=== PATIENT | female | born 1930 | race Caucasian/White ===

== ENCOUNTER 2019-06-07 19:57 | Inpatient (IN) | payer OTHER, MEDICARE ==
[~2019-06-07] VITALS: Ht 172.7 cm; Wt 55.6 kg
--- NOTE | ~2019-06-07 | HC ---
[facility] [address] [place] [address] CONSULTATION Name: KAREN CARTER Room #: 528B-B ADM IN M.R.#: [id number] Admission: 06/07/19 Attend Phys: Deedee Li DO Discharge: Date of : 05/03/30 Report #: [id number] THIS REPORT FOR: cc: CECILE - No family physician/PCP CECILE - No family physician/PCP Blane Cadena DPM ~ CC: DEEDEE Cummins physician/PCP Corine Scherer DATE OF SERVICE: 06/24/2019 INTRODUCTION: The patient is an 89-year-old female who has been admitted to [facility] with complications associated with her dementia. In the course of her stay, she has been identified as having severe onychodystrophy with onychogryphosis. When questioned, it has been many months since her toenails have been cared for. She also has a pretibial ulceration which is infected and has caused right foot edema. This wound is being managed by our [facility] physicians. Remainder of her medical history with regard to her foot care is unremarkable. PHYSICAL EXAMINATION: GENERAL: The patient is conversational, lucid and has obvious cognitive deficits including lack of short term memory. She is pleasant during our period of interview and treatment. EXTREMITES: Her pedal exam reveals dorsalis pedis, posterior tibial pulses graded at 1/4, capillary refill time is approximately 4 seconds. There is unilateral right 2+ pitting edema of the foot and ankle, presumably associated with injury on her panda. There are no acute changes associated with this vascularity. NEUROLOGICAL: The patient is apparently grossly intact to soft touch and pressure, gauging her responses from this examination is admittedly difficult. DERMATOLOGIC: Reveals severe onychogryphosis, onychodystrophy associated with onychomycosis. Nail hygiene is extremely poor. These nails have not been trimmed for upwards of a year. There are no acute findings, however. Remainder of her dermatologic exam reveals no other pathology. ASSESSMENT: 1. Dementia associated with Alzheimer's. 2. Onychogryphosis associated with onychomycosis, bilateral feet. PLAN: The patient's nails were debrided. No additional pathology was noted at the time of treatment. We discussed general hygiene and foot care issues for the future. [address] [address] CONSULTATION Name: KAREN CARTER Room #: 528B-B ADM IN M.R.#: [id number] Admission: 06/07/19 Attend Phys: Deedee Li DO Discharge: Date of : 05/03/30 Report #: [id number] It has been a pleasure having the opportunity of caring for the patient. I would be pleased to follow up with her upon request. By: 0937 Taj Cadena DPM /blaine
[2019-06-07 21:40] VITALS: BP 150/43
[2019-06-07] MEDS ORDERED: ARICEPT10 M1 PO (23:04)
[2019-06-07] MEDS ORDERED: CHLORTHALIDONE25 MG PO (23:06)
[2019-06-07] MEDS ORDERED: COREG CR40 MG PO (23:07)
[2019-06-07] MEDS ORDERED: LISINOPRIL40 MG PO (23:07)
[2019-06-07] MEDS ORDERED: PAXIL10 MG PO (23:08)
[2019-06-07] MEDS ORDERED: MEMANTINE HCL E28 MG PO (23:08)
[2019-06-07] MEDS ORDERED: ROSUVASTATIN CA10 MG PO (23:09)
--- NOTE | 2019-06-07 23:51 | NUR ---
Patient arrived via EMS on gurney from [facility] ED for admission to [facility] due to dementia with aggressive behaviors. Patient calm, pleasant and cooperative upon arrival. Patient had received Ativan 0.5mg PO while in ED. Patient cooperative with assessment, drowsy. Blunted affect. Disorganized speech. Alert and oriented to person only. Clothing changed without difficulty. Large amount of information provided by patient's son, CINTHIA, Kavon Mata. CINTHIA paperwork is in patient chart. Patient had been living at [facility] for the last 9 years in an independent living facility. Son reports a slow decline over the last 4 years. Reports that patient had become more frustrated, forgetting meals, forgetting meds. Son had hired a contract staff to provide patient her medications, walk her to meals and assist with ADLs. Son had decided to move patient to [facility] to provide more extensive care for patient on 06/03/19. Son reports that patient has always enjoyed going outside and sitting outside but has never taken off walking or eloping. Since patient moved into [place], she has had increased anxiety, eloping from facility 5 times, increased agitation, physically and verbally aggressive to staff. Son reports that patient has been taking her medication whole without difficulty. Reports that patient occasionally has difficulty making it to the bathroom for toileting needs. Son reports 11 pound weight loss over the last 30 days. Patient has been declining to eat most meals. [employer] consult ordered. Patient denies pain or discomfort. Denies SI/HI/AH/VH. No paranoia or delusional behaviors observed. No physical or verbal aggression observed. Son reports patient walks without assistive devices. Denies any falls over the last 3 months. Skin intact. Toe nails long and thickened. Lungs clear, diminished. Patient does have non-productive cough. Son reports that patient has had a cough for the last couple weeks and took her to the doctor. Reports that no infectious process was diagnosed and the doctor felt it was "sinus drainage" and recommended to start Zyrtec daily. Patient has been able to rest quietly since arrival to the unit.
--- NOTE | 2019-06-08 07:35 | NUR ---
PT HAD DRY COUGH. PT DENIES ANY PAIN. PT LUNGS CLEAR. PT DIDN'T REMEMBER LAST BM. PT DIDN'T KNOW WHERE SHE IS OR WHAT MONTH IT IS. PT STATED WE JUST HAD GRACIELA. PT STATED SHE GREW UP IN . PT HAS SCAB ON TOP OF HEAD.
[2019-06-08 07:40] VITALS: BP 130/51
[2019-06-08 08:40] VITALS: BP 130/51
--- NOTE | 2019-06-08 09:37 | NUR ---
SW completed chart review and TP. Pt lives at [facility] but has eloped on 5 occassions. Pt will need a secure unit . Will f/u with family to see if this has been initiated.
--- NOTE | 2019-06-08 15:39 | NUR ---
SW called son [phone] and left a VM.
--- NOTE | 2019-06-08 16:19 | NUR ---
Kristel spoke with pt's son piero and he is afaxing his DPOA paperwork to this SW fax. Sw compelted the intake assesment and discussed d/c options. Son would like referral sent to [facility]. More referals will be sent when he confirms where. KRISTEL is looking for secure placement.
[2019-06-08 17:25] VITALS: BP 112/52
[2019-06-08 19:45] VITALS: BP 109/34
[2019-06-08 23:25] VITALS: BP 109/34
--- NOTE | 2019-06-09 04:33 | NUR ---
PATIENT WAS UP IN ROOM AT 0415. SHE WAS PLEASANT AND STATES THAT SOMEONE HAD CALLED AND ASKED HER TO GO TO [facility] WITH THEM BUT SHE DOESN'T THINK SHE IS WANTING TO GO. SPOKE WITH PATIENT AND EXPLAINED SHE WAS AT [facility]. SHE SAYS SHE RECALLS NOTHING THAT HAS HAPPENED FOR LAST SEVERAL DAYS THAT BROUGHT HER HERE. SHE IS MILDLY UPSET THAT SHE DIDN'T KNOW ABOUT HER MOVE TO WALLS OR HER BEHAVIORS IN EXIT SEEKING OR REMEMBERING COMING TO THIS HOSPITAL. SHE STATES SHE WANTS TO SPEAK WITH THE DR TODAY ABOUT WHAT HER TREATMENT IS GOING TO BE. SHE DENIES PAIN. PHYSICAL ASSESSMENT WNL. PATIENT A/0X1. PLEASANT AND COOPERATIVE. DID NOT REMEMBER PUSHING THIS NURSE AWAY WHEN I CAME IN TO GIVE HER MEDS EARLIER AND ASSESS HER. SHE APOLOGIZED FOR HER ACTIONS. I TOLD HER THAT SHE WAS SLEEPY AT THE TIME AND PROBABLY DIDN'T WANT TO BE BOTHERED. EXPLAINED SHE WAS BROUGHT HERE TO GIVE HER A SAFE PLACE TO STAY WHILE THE [facility]CT[facility] CHECK HER OUT AND FIGURE OUT A TREATMENT PLAN FOR HER. SHE IS OK WITH THIS.
--- NOTE | 2019-06-09 08:36 | NUR ---
Sw completed chart review and pt is already making gains. Kristel sent referral to [place]
--- NOTE | 2019-06-09 08:57 | NUR ---
ASSUMED CARE AT 0700 THIS MORNING. SHE WAS SITTING AT A TABLE FOR BREAKFAST. SHE TOOK HER MEDICATIONS WITH MUCH ENCOURAGEMENT. PT. LOOKED AT THE THINGS ON HER TABLE AND COULD NOT TELL WHICH WAS THE MEDICATION CUP AND WHICH WAS THE WATER. SHE WAS GUIDED TO THE CORRECT DECISION. SHE DID TAKE HER MEDICATIONS. AFTER BREAKFAST, SHE WAS WANDERING THE KHAN, YANKING AT DOORS TRYING TO GET OUT. SHE WAS UPSET WITH THIS ASKING WHY SHE COULD NOT LEAVE. DR. JENNINGS INFORMED HER THAT THIS IS THE BEHAVIORS THE GOT HER HERE.
[2019-06-09 09:09] VITALS: BP 123/45
[2019-06-09 10:54] VITALS: BP 123/45
[2019-06-09 17:18] VITALS: BP 100/50
[2019-06-10 01:14] VITALS: BP 100/50
--- NOTE | 2019-06-10 01:52 | NUR ---
Patient was pacing hallways at start of shift. Her gait is fast, straight and steady. Pt. refused 3 different attempts to get her to take scheduled medicine. Pt. wandered in a few rooms that were not hers. She was redirected but would then resume same activity. She domenic any pain and has no s/s of distress. Pt. went into her room to lay down for bed at approximately 1115 pm.
[2019-06-10 08:20] VITALS: BP 107/58
--- NOTE | 2019-06-10 08:37 | NUR ---
PT UP AT BREAKFAST. PT DENIES ANY PAIN. PT ORIENTED TO SELF. PT TOOK MEDS ONE AT A TIME. PT ENCOURAGED TO DRINK HEALTH SHAKE. PT DIDN'T HAVE ANY ISSUES WITH BEHAVIOR THIS AM WITH REFUSING MEDS.
--- NOTE | 2019-06-10 08:53 | NUR ---
SW completed chart review and witnessed exit seeking behaviors from pt all day yesterday. pt is easily redirected. Pt will need more time and less behaviors to be placed in a new [facility]. [place] admissions stated that they are interested in pt and are willing to consider when she is more compliant and less restless.
[2019-06-10 09:28] VITALS: BP 107/58
--- NOTE | 2019-06-10 13:47 | NUR ---
PT WANDERING AROUND UNIT. PT ENCOURAGED TO DRINK WATER.
--- NOTE | 2019-06-10 15:58 | NUR ---
PT WALKING AROUND UNIT. PT ASKING IF THIS DENTAL ASSOCIATE CAN UNLOCK THE DOOR. PT STATED HER BACK WAS HURTING AND SHE NEEDED TO GET HOME. OFFERED HER SOME TYLENOL, PT REFUSED. TRIED TO OFFER FIND A WORD PUZZLES, PT REFUSED. OFFERED WATER, PT STATED SHE IS DRINKING WATER.
--- NOTE | 2019-06-10 17:55 | NUR ---
PT STILL UP CHECKING DOORS TO ESCAPE, A STAFF MEMEBER WAS COMING THROUGH DOOR AND SHE WENT OUT AFTER HER AND KNOCKED OFF NURSES GLASSES.
--- NOTE | 2019-06-10 18:01 | NUR ---
ATTEMPTED TO GIVE PT LORAZEPAM PRN, PT REFUSED MEDICATION. PT SITTING DOWN IN DINING ROOM.
[2019-06-10 19:53] VITALS: BP 145/47
--- NOTE | 2019-06-10 20:28 | H ---
[facility] [address] [place] [address] HISTORY AND PHYSICAL Name: KAREN CARTER Room #: 528B-B ADM IN M.R.#: [id number] Admission: 06/07/19 Attend Phys: Corine Scherer MD Discharge: Date of : 05/03/30 Report #: [id number] THIS REPORT FOR: //name// CC: CECILE physician/PCP Corine Scherer DATE OF SERVICE: 06/07/2019 INPATIENT PSYCHIATRIC EVALUATION ATTENDING PHYSICIAN: Rocky Li DO CLINICAL DIETITIAN: Micah Meng MD. REASON FOR ADMISSION: Behavioral disturbance at [facility]. SOURCES OF INFORMATION: Discussion with sonKavon; chart review; records from [place] and the signature accounting machine mechanic. HISTORY OF PRESENT ILLNESS: An 89-year-old female new admission to [facility] in [facility]. The patient has a history of Alzheimer's. Per the son, the patient was moved to the snf, she attempted to escape 5 times. The patient had a largely negative past medical history. No strokes, heart attacks or surgeries. From her medication list, she has been treated for hyperlipidemia, hypertension, depression and dementia. REVIEW OF SYSTEMS: From the [place] ER: CONSTITUTIONAL: Negative for chills or fever. EYES: Negative for eye pain or visual changes. EARS: Negative for pain. NOSE: Negative for congestion or discharge. MOUTH, THROAT: Negative for dysphagia or pain. NECK: Negative for pain, stiffness. CARDIOVASCULAR: Negative for chest pain, palpitations, tachycardia. RESPIRATORY: Negative for cough, dyspnea, pleuritic chest pain. GASTROINTESTINAL: Negative for abdominal pain, diarrhea, nausea or vomiting. GENITOURINARY: Negative for dysuria, frequency, hematuria, or urgency. MUSCULOSKELETAL: Negative for back pain, neck pain. INTEGUMENTARY: Negative for abrasions, rashes. NEUROLOGIC: Negative for altered mental status, dizziness, headache, loss of consciousness, also functional weakness. I reviewed apparently the above problems today as well and they were negative. PSYCHIATRIC: Interestingly, the patient denied, could not remember events from snf. Emergency Room physical grossly negative. LABORATORY DATA: Hemoglobin 10.2, hematocrit 32.7, white blood cell count 16.5, [facility] [address] [place] [address] HISTORY AND PHYSICAL Name: KAREN CARTER Room #: 528B-B ADM IN M.R.#: [id number] Admission: 06/07/19 Attend Phys: Corine Scherer MD Discharge: Date of : 05/03/[birth year] Report #: [id number] platelet count 244. Albumin 3.7, alkaline phosphatase 53, ALT 10, AST 26, total bilirubin 0.3, BUN 26, serum calcium 9.3. Serum chloride 102, bicarbonate 28. Serum creatinine 0.88, GFR greater than 60. Serum globulin 2.8. Serum glucose 123, potassium slightly low at 3.4, total protein 6.5. Serum sodium 140. Toxicology, negative acetaminophen, negative salicylates, ethanol less than 10. Urinalysis showed trace ketones, trace blood. Additional information from [facility], social welfare administrator, named Emily, the patient was brought to the [facility] as a new admission on 06/03/2019, no prior contact with the facility, Thursday the family was scheduled to visit the facility prior to the patient's relocation from [facility]; however, visitation appointments were not kept, the patient relocated to [facility], now becoming familiar with the facility prior, Emily described that the patient began displaying aggressive behavior and exit seeking behavior on the evening of . Emily described that one day she was sent to the ER, exited the facility when the door was opened for another resident. Staff of [facility] of [place] keeping the patient away from the road. She was running towards it, striking at staff several times, Emily states that the patient had been discharged from [facility] and affirming that no documentation was given to the family to communicate as such. Emily expressed that [facility] is not able to meet the patient's daily care needs, this facility is not a memory care unit, only provides services who requires long-term care. Emily stated that [facility] had contacted with [facility], encouraged [facility] to advise the family to present to the Emergency Department. Evidently, the patient lost 5-6 pounds in the last month due to decreased appetite with some increased paranoia and anxiety. PHYSICAL EXAMINATION: VITAL SIGNS: Temperature 36.4, pulse 90, respirations 17, BP 130/51, O2 sat 95%. MUSCULOSKELETAL: Normal gait and station. Wearing glasses. The patient does have a kyphotic posture. MENTAL STATUS EXAMINATION: This is a well-developed, age-appearing female. Attention limited. Concentration limited. Speech, deliberate. Thought process linear and limited. Thought content, relative poverty of thought. No psychomotor retardation. Mood was congruent, constricted, diminished range. She denied auditory, visual, or tactile hallucinations. She denied suicidal intent or plan. Denied hopelessness, helplessness. Memory grossly noted to be impaired grossly impaired. Insight impaired. Judgment impaired. Fund of knowledge well below average. FAMILY HISTORY: She has had 3 younger siblings with dementia. Her spouse in 1997. [facility] [address] [facility] [place] [address] HISTORY AND PHYSICAL Name: KAREN CARTER Room #: 528B-B ADM IN M.R.#: [id number] Admission: 06/07/19 Attend Phys: Corine Scherer MD Discharge: Date of : 05/03/[birth year] Report #: [id number] ABUSE HISTORY: No history of being subject to physical, sexual or emotional abuse. No criminal justice history. No history. FORMULATION: An 89-year-old female sent out from snf, the snf was reporting patient cannot return. 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 PLAN: Evaluate, stabilize, obtain collateral. I went ahead and discontinued the paroxetine as well as donepezil. Continue memantine 10 mg p.o. b.i.d., lisinopril 40 mg daily, chlorthalidone 25 mg 3 days a week, atorvastatin 20 mg p.o. daily. I did advice son to reconsider the use of statins in this patient. Coreg 12.5 mg p.o. b.i.d. with meals. I will leave lorazepam on for 0.5 mg p.o. q. 6 p.r.n. We will plan to taper on this admission. Other house PRNs. The patient is a no code. ESTIMATED LENGTH OF STAY: 10-14 days. STRENGTHS: She is insured, family support. WEAKNESSES: Dementia, advanced age. Time spent on interview, review of records, coordination of care was greater than 60 minutes. <ELECTRONICALLY SIGNED> By: Rocky Li, 06/10/192027 [id number] [id number] Rocky Li, /nt
--- NOTE | 2019-06-11 02:34 | NUR ---
Care assumed of patient at 1915: Patient pacing the halls most of the evening. Exit seeking, demanding to go home, attempting to open any and all doors on the unit. Avoidance of any questions asked. [place], obsessive thoughts on getting home. Flat affect, avoiding eye contact. Patient alert and oriented to person only. Confused and forgetful. Denies pain or discomfort. Patient restless. Unable to sit for nursing assessment for longer than a couple minutes. Patient took HS medication crushed in yogurt. Patient ate approximately 50% yogurt. Patient needed assistance due to having difficulty using spoon. Patient agitated and irritable due to nurse asking questions and not allowing her to leave. No verbal or physical aggression observed. Denies SI/HI/AH/VH. Patient sarcastic at times. Patient denies anxiety and depression. Patient was difficult to re-direct this evening. Patient provided PRN Ativan due to severe agitation observed. Patient was assisted to bed and was able to fall to sleep without difficulty. Patient resting quietly at this time.
[2019-06-11 06:19] VITALS: BP 141/40
[2019-06-11 08:19] VITALS: BP 141/40
--- NOTE | 2019-06-11 14:03 | NUR ---
Spent most of morning in day room without s/o distress. Does ambulate at times around unit with regular, steady gait. Orientated to name only, denies SI/HI/pain. Calm and cooperative. Breath sounds clear t/o, bilaterally equal. Reg HR auscultated. Color pink with brisk capillary refill and palpable peripheral pulses. Voiding independently. Active bowel sounds over soft, flat abdomen. Currently pacing in unit without exit seeking. No s/o distress.
[2019-06-11 20:37] VITALS: BP 118/43
--- NOTE | 2019-06-11 23:50 | NUR ---
Care assumed of patient at 1915: Patient pacing about the halls early in the shift. Patient wandering through other patient rooms, attempted to lay in other patient beds, pilfering through personal belongings. Patient alert and oriented to person only. Confused and forgetful. Flat affect. Easier to re-direct, less resistive than previous nights. Patient cooperative with nursing assessment. Restless at times and asked to sit for another couple of minutes. Denies pain or discomfort. Denies SI/HI/AH/VH. Denies depression or anxiety. No s/s of delusional or paranoia behaviors observed. Patient continent of bowel and bladder this evening. Declined HS snack. Took HS medication crushed without difficulty. No exit seeking behaviors observed, has not asked where her car is or to go home. Patient assisted and tucked into bed. Patient was able to fall to sleep rather quickly and has been resting quietly since.
[2019-06-12 08:15] VITALS: BP 126/84
--- NOTE | 2019-06-12 08:51 | NUR ---
PT EATING BREAKFAST. PT TOOK MEDS IN YOGART THIS AM. PT TOLERATED WELL. PT ORIENTED TO PERSON. PT LIKES TO WONDER AROUND UNIT. PT EXIT SEEKS ALSO, CHECKING DOORS.
--- NOTE | 2019-06-12 17:20 | NUR ---
PT NOT EATING MUCH DINNER. ENCOURAGED PT TO DRINK ENSURE DRINK. TOOK BP WITH SMALL CUFF 142/57. PT WAS ASKING ABOUT GOING HOME TODAY. FAMILY MEETING TOMMORROW. GAVE PT ATIVAN 0.5MG PO WITH COREG TO HELP WITH INCREASED ANXIETY.
--- NOTE | 2019-06-12 18:12 | NUR ---
PT WALKING AROUND UNIT WITH ANOTHER PATIENT.
[2019-06-12 19:41] VITALS: BP 120/41
[2019-06-12 19:50] VITALS: BP 120/41
--- NOTE | 2019-06-13 04:27 | NUR ---
Assumed care of patient this pm shift. Patient confused and pacing the halls. Patient denies pain. Patient denies hi/si. Patients affect is blunted. Patient takes medications crushed in applesauce. Patient ambulates with out assistance. Patients assessment shows clear breath sounds, active bowel sounds, and s1 s2 heard with auscultation. Patient had a difficult time getting to sleep and became mildly aggressive with redirection. Patient was administered a shot of haldol. Patient attained a skin tear on her ankle after kicking the nurse. The wound was covered and bandaged. Patient calmed down significantly and was able to sleep not long after the im injection.
[2019-06-13 07:40] VITALS: BP 106/58
--- NOTE | 2019-06-13 09:09 | NUR ---
Sw sent updates to [facility] per request. They are considering her for placement once she is meds compliant and more easily redirected.
--- NOTE | 2019-06-13 12:28 | NUR ---
Kristel met with family and Dr li to disucss treatment plan. Dr Li completed a meds review and DX. Kristel discussed placment options and reported that [facility] was still considering this pt. KRISTEL will send referal to [facility] per fmaily request and 1 more placement so there are more options.
--- NOTE | 2019-06-13 18:40 | NUR ---
0710 ASSUMED CARE OF PATIENT. PATIENT AMB IN [facility]HAN AT THIS TIME. PATIENT NOTED EXIT SEEKING AND WANDERING IN KHAN. OCCASIONALLY PATIENT SITS IN DAYROOM THEN UP TO WANDERING. PATIENT TOOK MEDS CRUSHED IN PUDDING WITH SOME ENCOURAGEMENT. PATIENT HAS A DRESSING TO RIGHT LEG DUE TO SKIN TEAR. UNABLE TO VOICE GOAL OR CONCERN. 3323 FAMILY HERE FOR MEETING WITH AND DIETER.
--- NOTE | 2019-06-13 18:45 | NUR ---
AT 1820 PICTURE TAKEN OF OPEN AREA TO RIGHT ANTERIOR LEG . WOUND CLEANED WITH NS, XEROFORM PETROLATUM DRESSING APPLIED TO WOUND THEN COVERED IN CURLEX DRESSING. PATIENT REMAINED IN BED RESTING WITH EYES CLOSED X 15 MIN THEN UP TO WANDER IN KHAN. DRESSING REENFORCED WITH TAPE DUE TO DRESSING FALLING OF WITH AMBULATION. REPORTED TO NEXT SHIFT.
[2019-06-13 19:37] VITALS: BP 127/45
--- NOTE | 2019-06-14 01:03 | NUR ---
Care assumed of patient at 1915: Patient pacing the halls at start of shift. Patient pleasant and cooperative. Some exit seeking behaviors observed x2. Patient re-directable to sit down and speak with nurse. Patient fell asleep in recliner rather early this shift. Patient presents with flat affect. Denies SI/HI/AH/VH. No aggression or agitation observed. No delusional or paranoia behaviors observed. Alert and oriented to person only. Patient took HS medication crushed without difficulty. Ate 25% yogurt, fed by nurse. Patient walked to her room with nurse. Continent of bladder. Changed into bed time clothing. Was then able to lay down in bed and fall sleep without difficulty. No aggression or agitation observed. Dressing remains intact to right lower extremity. Order obtained for wound consult and treatments daily. Patient sleeping quietly in bed at this time.
[2019-06-14 08:16] VITALS: BP 144/60
--- NOTE | 2019-06-14 11:09 | NUR ---
Date of Admission: 06/07/19 Date of Activity Therapy Assessment: 06/10/19 Activity Goal: Decrease wandering/exit seeking behaviors Initial Goal: 1 Group activity/day Weekly progress towards goal: On track Group participation level: Minimal Behaviors observed: Patient's attendance to groups has improved as wandering has begun to decrease, though level of participation continues to be low. Pt often appears drowsy or disinterested, though she is not able to express interests. Plan: No change towards goal
--- NOTE | 2019-06-14 12:34 | NUR ---
0900 Sitting at table this AM without s/o distress. Compliant with meds, given crushed in apple sauce. Alert, orientated to person only. No speech or gestures suggestive of SI/HI. Breath sounds clear t/o, bilaterally. Spontaneous, nonproductive cough. Reg HR auscultated. Color pale pink with brisk capillary refill and palpable peripheral pulses. Small amount of yellow urine per brief. Hypoactive bowel sounds over soft, flat abdomen. Slow, steady gait. Much slower gait after AM meds, sitting most of day in dining room. Large skin tear per R lower leg. Cleaned with NS and redressed with petroleam drsg, gauze and kerlix. No edema, drg or redness.
--- NOTE | 2019-06-14 16:55 | NUR ---
WOUND CONSULT; RIGHT ANTERIOR LEG HAS A SKIN TEAR. THERE IS NON VIABLE SKIN THAT NEEDS TO BE REMOVED BUT THE PATIENT WAS AGITATED AND WOULD NOT ALLOW IT. NO ODOR OR ANY OTHER S/S OF INFECTION. RECOMMENDATION; CONTINUE XEROFORM, BORDER TRACEE HAGER M/W/F PRN RN NOTIFIED
[2019-06-14 19:33] VITALS: BP 111/41
--- NOTE | 2019-06-15 01:59 | NUR ---
Care assumed of patient at 191: Patient was seated in recliner, appeared to be sleeping at start of shift. Patient got up from chair around 1944 and started to pace the halls, exit seeking, pushing on doors. Staff assisted patient to the bathroom. Patient having small, soft, unformed BM. Patient restless and resistive to assist. Patient alert and oriented to person only. Patient confused. Patient became agitated and irritable with staff quickly. Nurse attempted to provide HS medication crushed. Appears that patient took approximately 75% HS medication. Patient became combative shortly after by kicking, hitting and grabbing at nurse. Slamming her door, yelling "get out of here now". Staff attempted to assist patient to bed or recliner several times. Patient stating she needed to use the bathroom several times and was assisted to the bathroom. Continued to have smears of soft BM and small BM. Patient rubbing her abdomen, stating she had to have a BM. Abdomen soft, round, nontender. Bowel sounds present x4. PRN MOM provided due to inability of having BM. Last BM 06/11/19. Patient drank MOM out of big cup with much encouragement. Patient remained restless and became increasingly aggressive toward staff. Did scratch staff neck and arms at one point. Snack, toileting and diversional activities were not effective. Olanzapine IM administered. Patient was able to fall asleep after approximately 45 minutes and has been able to rest quietly since.
[2019-06-15 09:00] VITALS: BP 112/65
--- NOTE | 2019-06-15 09:16 | NUR ---
SW completed chart review and met with pt. She sat quietly in my office but was unable to answer any questions. later she stated she needed to go to the bathroom. Sw handed her off the FEEDER OPERATOR. Pt needed an IM yesterday and continues to be aggressive with staff during cares. It has lessoned significantly and she is easier to redirect. D/c is pening placement and less combative behviors and meds compliance.
[2019-06-15 09:18] VITALS: BP 112/65
--- NOTE | 2019-06-15 09:25 | NUR ---
PT SITTING IN DINING ROOM AND NEEDING ASSISTANCE WITH FEEDING. PT IS ABLE TO EAT, NOT UNDERSTANDING ABOUT FEEDING SELF. PT DRINKING THIN LIQUIDS AT THIS TIME WITHOUT ANY ISSUSE. STILL HAS A DRY COUGH. PT UNSTEADY ON FEET AND NEEDING SUPERVISION WITH AMBULATION. PT TOOK MEDS CRUSHED IN YOGART.
--- NOTE | 2019-06-15 14:00 | NUR ---
PT UP WALKING IN KHAN. ASSISTED PT WITH ANOTHER NURSE TO HER ROOM. ASSISTED PT WITH LYING DOWN IN BED WITH BED ALARM.
[2019-06-15 17:00] VITALS: BP 131/44
--- NOTE | 2019-06-15 17:00 | NUR ---
CHECKED PT BP. WITH NORMAL CUFF 100/34, 74. WITH SMALL CUFF 131/44, 82.
[2019-06-15 19:36] VITALS: BP 98/24
--- NOTE | 2019-06-16 00:40 | NUR ---
Assumed care of patient this pm shift. Patient sitting in reclining chair in the [facility]. Patient was sleeping. Patient was rousable with verbal stimulus. Patient denies pain. Patient denies hi/si. Patients affect is flat. Patients assessment shows clear breath sounds, active bowel sounds, and s1 s2 heard with auscultation. Patient took her medications crushed in vanilla pudding. Patient is more lethargic this evening than normal. Patient has a wound on her right ankle that has a clean dressing that is intact. We will continue to monitor.
[2019-06-16 08:38] VITALS: BP 139/82
--- NOTE | 2019-06-16 10:44 | NUR ---
WOUND CARE F/U; THE WOUND WAS SOUPY TODAY WITH THICK DRAINAGE (NOT PURULENT). NO ODOR. THE WOUND SEEMS TENDER VS NORMAL PATIENTS RESPONSE? RECOMMENDATION; CHANGE TO SHANNON RONQUILLO SECURE WITH KERELLI M/W/F PRN RN PRESENT
--- NOTE | 2019-06-16 12:35 | NUR ---
0715 Lying supine in bed without s/o distress. Drowsy but does respond with short answers to some questions. Orientated to name only. No speech or gestures suggestive of SI/HI. Is able to stand and transfer with minimal assistance but does favor L leg. Breath sounds clear t/o, bilaterally equal. Reg HR auscultated. Color pink with brisk capillary refill and palpable peripheral pulses. Brief dry. Active bowel sounds with loud murmur auscultated over soft, flat abdomen. Dressing over LLL dry and intact, able to view large bruise above dressing. Wound care nurse here to do drsg change. Small amt thick, enamorado drainage on top of wound, redressed by wound nurse per note. Did ambulate for several minutes around unit with relatively steady gait, favoring L leg. Spent rest of morning sleeping in recliner. Poor oral intake even with assistance. Ammonia level 16. Wound care
--- NOTE | 2019-06-16 15:55 | NUR ---
Sw completed chart review and setn updates to [facility] and Tyra estrada. Pt is slowly making gains
[2019-06-16 20:00] VITALS: BP 111/46
[2019-06-16 22:27] VITALS: BP 111/46
--- NOTE | 2019-06-17 01:45 | NUR ---
2034 RESUMMED CARE FROM DAY SHIFT, PATIENT IN HALLS WALKING HOLDING ON TO THE RAILS. I ASKED PATIENT IF SHE WOULD USE A WALKER TO ASSIST HER WITH WALKING SHE REFUSED, PATIENT IS LESS SEDATED. PATIENT TOOK MEDICATION CRUSHED IN APPLESAUCE WITHOUT INCIDENCE. PATIENT LIKES TO GO TO THE DOOR TO GET OUT, PATIENT IS CONFUSED AT TIMES. PATIENT COOPERATIVE NO BEHAVIORS DENIES HI/SI/AH/VH AT PRESENT. BOWELS SOUNDS PRESENT, LUNGS CLEAR, PATIENT IS HAVING A ULTRASOUND THIS AM. WILL CONTINUE TO MONITOR PATIENT FOR BEHAVIORS AND SAFETY. THE AM. WILL CONTINUE TO MONITOR PATIENT FOR SAFETY AND BEHAVIORS.
[2019-06-17 07:21] LABS: HEMATOCRIT 30.1 % (37.0-47.0); HEMOGLOBIN 9.7 gm/dL (12.0-15.0); MCH 27.7 pg (26.0-34.0); MCHC 32.2 g/dL (28.0-37.0); MCV 86.3 fL (80.0-100.0); PLATELET COUNT 106 thou/uL (150-400); RBC 3.48 mil/uL (4.20-5.00); WBC 5.4 thou/uL (4.0-11.0)
[2019-06-17 07:38] LABS: CALCIUM 9.1 mg/dL (8.5-10.1); CREATININE 1.2 mg/dL (0.6-1.0); POTASSIUM 3.7 mmol/L (3.5-5.1)
[2019-06-17 07:57] LABS: PLATELET ESTIMATE DECREASED
[2019-06-17 08:00] VITALS: BP 133/43
--- NOTE | 2019-06-17 09:03 | NUR ---
PT SITTING OUT IN DINING ROOM. PT EATING BREAKFAST. HAD TO CRUSH MEDS AND PUT IN YOGART. PT DENIES ANY PAIN. PT LUNGS CLEAR AND ON ROOM AIR. PT SEEMS STRONGER WITH WALKING, NEEDS STAND-BY ASSIST WITH GAIT. PT ORIENTED TO SELF ONLY.
[2019-06-17 09:35] VITALS: BP 133/43
--- NOTE | 2019-06-17 16:36 | NUR ---
Sw called and spoke with RW and they stated that they are interested in the pt and will be out on to complete the assesment. Weekend Sw will send updates on Thursday. FAX coversheet is prepared.
--- NOTE | 2019-06-17 16:38 | NUR ---
SW called and spoke with Kavon and provided an update about RW coming to assess this pt on Thursday.
--- NOTE | 2019-06-17 18:00 | NUR ---
PT UP WALKING AROUND UNIT WITH STEADY GAIT. PT ENCOURAGED TO EAT DINNER, PT HAD A FEW BITES. ASSISTED PT TO ROOM TO LIE DOWN AND CHANGED DRESSING. CLEANED WITH SALINE, APPLIED XEROFOAM, PLACED OPTIFOAM OVER AND WRAPPED IN KERLEX SECURED WITH TAPE.
[2019-06-17 21:35] VITALS: BP 109/44
[2019-06-17 23:53] VITALS: BP 109/44
--- NOTE | 2019-06-18 01:01 | NUR ---
Pt. resting quietly with eyes closed. Respirations even and non-labored. NO s/s/ of distress noted. Pt. turns self in bed.
[2019-06-18 09:06] VITALS: BP 130/34
[2019-06-18 10:54] VITALS: BP 130/34
--- NOTE | 2019-06-18 17:26 | NUR ---
1430 RESUMMED CARE FROM OVERNIGHT SHIFT THIS AM, PATIENT WAS IN DAY ROOM WALKING AROUND. PATIENT LOOKS MUCH BETTER AND IS ABULATING WELL, PATIENT ATE BREAKFAST TOOK MEDICATION WITHOUT INCIDENCE. PATIENT'S LUNGS CLEAR, ABDBOMEN SOFT AND ROUND. PATIENT HAD TWO EPISODES OF DIARRHEA TODAY SO HOLD STOOL SOFTENERS. PATIENT DENIES SI/HI/AH/VH AT PRESENT, PATIENT INTERACTING WITH NEW PATIENT. PATIENT HAS NOT DISPLAYED ANY BEHAVIORS EXCEPT EXIT SEEKING, PATIENT CALM COOPEERATIVE. WILL CONTINUE TO MONITOR FOR BEHAVIOR AND SAFETY.
[2019-06-18 19:37] VITALS: BP 128/50
[2019-06-19 02:55] VITALS: BP 128/50
--- NOTE | 2019-06-19 05:29 | NUR ---
Pt. up ad jah in hallways. Gait is slow and steady with occasional wobble. Pt. is alert to name only. Pt. is putting various items she finds in her room into her trash bag. Attempted to reorient patient. Pt. remains oriented to name only. No exit-seeking behavior noted. Pt. slept well through shift. She was up from approximately 2:00 am to 3:00 am before returning to bed. No signs or symptoms of pain or distress noted.
[2019-06-19 06:24] VITALS: BP 107/36
--- NOTE | 2019-06-19 18:33 | NUR ---
PATIENT RESTLESS AND AMBULATING HALLS THIS SHIFT. EXIT SEEKING OFTEN. ATTEMPTED TO REMOVE SCREWS FROM WINDOW AT END OF KHAN. OFTEN GOING INTO OTHER PATIENT ROOMS AND NEEDS REDIRECTION. NOT AGGRESSIVE, REDIRECTS WELL. AMBULATES WITH STEADY BALANCED GAIT. PARTICIPATED IN GROUP. INTERACTED WITH OTHER PATIENTS AT MEALS.
[2019-06-19 19:37] VITALS: BP 152/42
--- NOTE | 2019-06-20 03:53 | NUR ---
ASSUMED PT CARE AROUND 191. AXOX2. PT WAS WANDERING AROUND UNIT ASKING TO CALL PEOPLE FOR NO OBVIOUS REASONS. TRIED TO EXPLAIN AND REDIRECT. PT KEPT ON WANDERING IN HALLWAY AND CAUGHT ON SECURITY CAMERA BY STAFF SITTING DOWN IN THE MIDDLE OF THE HALLWAY AND LYING DOWN FELL ASLEEP. PT WAS TRANSFERRED TO RECLINER IN DINING ROOM BY STAFF. NO S/S ACUTE DISTRESS NOTED OR REPORTED AT THIS TIME. WILL CONT TO MONITOR FOR ANY CHANGES IN CONDITION.
[2019-06-20 07:58] VITALS: BP 107/49
--- NOTE | 2019-06-20 10:14 | NUR ---
0700 ASSUMED CARE OF PATIENT. PATIENT AMBULATING IN KHAN AT THAT TIME. 0750 PATIENT SITTING AT TABLE IN DAYROOM EATING BREAKFAST. TRUSS DRIVER HELPER ASSISTED PATIENT IN EATING AND OPENING CONTENTS OF BREAKFAST. PATIENT NEEDS TO BE PROMTED TO EAT AT TIMES. MEDICATION GIVEN WHOLE WITH H2O WITHOUT DIFFICULTY. UNABLE TO OBTAIN GOALS AND CONCERNS FROM PATIENT, WHEN ASKED PATIENT RAMBLES ON ABOUT SOMETHING DIFFRENT. PATIENT AT TABLE JOKING AND COMMUNICATING WELL WITH OTHER PATIENTS AT TABLE. PATIENT LAUGHING AT TIMES. WILL CONTINUE TO OBSERVE FOR BEHAVIORS.
--- NOTE | 2019-06-20 10:52 | NUR ---
WOUND CARE F/U; THE WOUND HAS LESS SLOUGH IN THE WOUND BED. THE PAIN REMAINS. RECOMMENDATION; CONSULT DR ARREOLA. BRITTA PRESENT
--- NOTE | 2019-06-20 10:54 | NUR ---
1020 WOUND CARE NURSE BRANDI HERE TO CHANGE DRESSING TO RIGHT LOWER EXTREMITY. WHILE REMOVING CURLEX DRESSING, DRESSING STUCK TO WOUND WITH NO THERAHONEY OR VASALINE GAUZE NOTED ON WOUND. WOUND NURSE APPLIED NS TO SITE FOR EASY REMOVAL OF CURLEX PATIENT MOANING DURING THIS PROCESS DUE TO PAIN, TYLENOL 650MG GIVEN CRUSHED IN PUDDING. WOUND APPEARS TO BE HEALING, WOUND NURSE APPLIED THERAHONEY THEN WRAPPED WITH CURLEX. WILL PASS ON THE IMPORTANCE OF COVERING WOUND WITH THERAHONEY OR VASALINE GAUZE PRIOR TO WRAPING.
--- NOTE | 2019-06-20 12:30 | NUR ---
KRISTEL spoke with Izzy at and they have accepted this pt. They have asked that she d/c Monday 06/26 to watch for any changes in behvaiors wiht her current meds changes. Kristel reported this to staff.
--- NOTE | 2019-06-20 12:34 | NUR ---
SW called and reported this to Kavon son and he is satisfied with the outcome for d/c plans.
--- NOTE | 2019-06-20 18:46 | NUR ---
WOUND CARE TEAM HERE TO SEE PATIENT. WOUND VIEWED AND NEW ORDERS RECIEVED.
[2019-06-20 19:50] VITALS: BP 103/41
--- NOTE | 2019-06-21 02:56 | NUR ---
Care assumed of patient at 1915: Patient seated in a recliner at start of shift. Easily arousable to voice. Calm, pleasant and cooperative. Alert and oriented to person only. Confused on current time, place and situation. Denies pain or discomfort. Patient answering one word questions without much difficulty. Denies SI/HI/AH/VH. Denies anxiety or depression. Spoke with nurse for a short period of time. Interacting appropriately. Flat affect but did have an occasional smile. Disorganized thoughts noted but was able to be re-directed to focus on one topic. Patient was provided HS medication whole. Was able to follow directions to take medication whole with water without difficulty. Patient declined HS snack. Patient assisted to the bathroom then to bed with mod assist x1. No aggression or agitation observed. Cooperative with ADL cares. Wound care provided to right lower extremity. Wound culture obtained and sent to lab. Area cleansed with NS, pat dry, applied Dakins soaked gauze, covered with ABD pad, wrapped with Kerlix and taped to secure. Tolerated dressing change with no s/s of pain or discomfort. Patient able to fall to sleep and has been sleeping quietly without issue to incident to report.
[2019-06-21 08:54] VITALS: BP 131/43
[2019-06-21 09:57] VITALS: BP 131/43
--- NOTE | 2019-06-21 10:56 | NUR ---
1140 RESUMMED CARE FROM OVERNIGHT SHIFT THIS AM, PATIENT UP IN DAY ROOM QUIET. PATIENT ATE BREAKFAST TOOK MEDICATION WITHOUT INCIDENCE, I HELD SENNA DUE TO LIQUID STOOL THIS AM. PATIENT LOOK GOOD UP WALKING THE HALLS NOT SEDATED, BOWEL SOUNDS PRESENT. LUNGS CLEAR ABDOMEN SOFT AND ROUND PATIENT CALM COOPERATIVE DENIES SI/HI/AH/VH AT PRESENT. WILL CONTINUE TO MONITOR PATIENT FOR SAFETY AND BEHAVIORS.
--- NOTE | 2019-06-21 11:36 | NUR ---
Date of Admission: 06/07/19 Date of Activity Therapy Assessment: 06/10/19 Activity Goal: Decrease wandering/exit seeking behaviors Initial Goal: 1 Group activity/day Weekly progress towards goal: On track Group participation level: Minimal Behaviors observed: Patient does not consistently participate in group therapy though wandering behaviors are observed to have improved. When present, patient minimally engages but does not display inappropriate or aggressive behaviors. Plan: No change towards goal
[2019-06-21 19:48] VITALS: BP 147/46
--- NOTE | 2019-06-21 22:49 | NUR ---
Care assumed of patient at 1915: Patient ambulating about dayroom and hallways at start of shift. Patient would sit in dayroom for awhile then pace halls, then sit in dayroom for a bit. Patient smiling, calm, cooperative. Patient exit seeking with another peer at times. Stating she needs to get home because she is tired. Patient initially refused her medication whole. Education provided, which was not helpful. Another peer encouraged her to take her medication, which was not helpful. While nurse was speaking with patient about the weather, nurse handed her the cup of medications and she took them with water. Patient denies pain or discomfort. Patient enjoyed spending time with other peer. Alert and oriented to person only. Confused and forgetful. No aggression or agitation observed. Ate 100% HS snack. No delusional or paranoia behaviors observed. Patient assisted to the bathroom, continent of bladder. Patient then assisted to bed. Patient was able to fall asleep without much difficulty and has been able to rest quietly.
[2019-06-22 08:42] VITALS: BP 130/46
[2019-06-22 12:17] LABS: CALCIUM 8.4 mg/dL (8.5-10.1); CREATININE 1.2 mg/dL (0.6-1.0); POTASSIUM 4.3 mmol/L (3.5-5.1)
--- NOTE | 2019-06-22 13:58 | NUR ---
COOPERATIVE WITH AM MEDICATION ADMINISTRATION AND AM NURSING ASSESSMENT. SITS QUIETLY WITH PEERS AND DOES FEED SELF AT MEALS WITH PROMPTING-OFFERED WATER/FLUIDS FREQUENTLY D/T MD CONCERN ABOUT DECREASED PO INTAKE. DID EAT APPROX 50 PERCENT BREAKFAST AND 70 PERCENT OF LUNCH AND ATE ALL OF MAGIC CUP SUPPLEMENT PROVIDED AT LUNCH. DOES HAVE SOME BRIEF EPISODES OF PACING AND EXIT SEEKING AT EXIT DOOR X 1 THIS AM BUT EASILY REDIRECTED AND HAS BEEN INVOLVED IN SCHEDULED ACTVITIES. DRESSING CHANGE COMPLETED AND PHOTO OBTAINED PER HOSPITAL POLICY-PLACED IN CHART. SCANT AMOUNT BROWNISH DRAINAGE ON DRESSING-COOPERATIVE WITH ALLOWING THIS DONE. RELAXED FACIAL EXPRESSION DURING 1;1 WITH THIS RN AND WHILE BEING OBSERVED IN [facility]. SMILES PLEASANTLY AT STAFF AND STATES PLEASE AND THANK YOU WHEN OFFERD ASSISTANCE. DENIES C/O PAIN/DISCOMFORT. DENIES SI/SH/HI. GAIT IS STEADY WITHOUT ASSISTIVE DEVICES.
[2019-06-22 19:58] VITALS: BP 106/38
[2019-06-22 21:41] VITALS: BP 145/61
[2019-06-22 21:50] VITALS: BP 106/38
--- NOTE | 2019-06-22 22:58 | NUR ---
2204 RESUMMED CARE FROM DAY SHIFT, PATIENT IN DAY ROOM SITTING QUIET. PATIENT DENIES SI/HI/AH/VH AT PRESENT, PATIENT TOOK MEDICATION WITHOUT INCIDENCE I HELD PATIENT'S SENNA DUE TO LOOSE STOOLS. PATIENTS LUNG CLEAR, ABDOMEN SOFT BOWEL SOUNDS PRESENT. PATIENT CALM COOPERATIVE WILL CONTINUE TO MONITOR PATIENT FOR SAFETY AND BEHAVIORS.
[2019-06-23 06:15] LABS: HEMATOCRIT 27.3 % (37.0-47.0); HEMOGLOBIN 8.7 gm/dL (12.0-15.0); MCH 27.5 pg (26.0-34.0); MCHC 31.7 g/dL (28.0-37.0); MCV 86.8 fL (80.0-100.0); RBC 3.14 mil/uL (4.20-5.00); RDW 15.8 % (10.5-14.5); WBC 4.6 thou/uL (4.0-11.0)
[2019-06-23 06:45] LABS: CALCIUM 8.1 mg/dL (8.5-10.1); CREATININE 0.9 mg/dL (0.6-1.0); MAGNESIUM 1.6 mg/dL (1.8-2.4); POTASSIUM 3.9 mmol/L (3.5-5.1)
[2019-06-23 07:52] VITALS: BP 123/48
--- NOTE | 2019-06-23 12:08 | NUR ---
Kristel spoke with uday at and she stated they are ready to admit this pt on thursday at 10am. Kristel will send updates today PM and Thursday PM.
[2019-06-23 13:16] LABS: % SATURATION 8 % (20-39); IRON 20 ug/dL (50-170); TIBC 249 ug/dL (250-450)
[2019-06-23 13:37] VITALS: BP 123/43
[2019-06-23 13:43] LABS: FOLIC ACID 16.5 ng/mL (8.6-58.9)
--- NOTE | 2019-06-23 13:45 | NUR ---
ASSUMED CARE AT 0700 THIS MORNING. PT. UP AND WALKING AROUND. SHE CONTINUES TO BE VERY CONFUSED. SHE IS UNABLE TO FIND HER ROOM, A PLACE TO SIT, ETC. SHE NEEDS ASSISTANCE OF STAFF. SHE WAS COOPERATIVE WITH TAKING HER MEDICATIONS. SHE DOES STAFF TO ENCOURAGE HER TO PUT THEM IN HER MOUTH AND THEN DRINK WATER TO SWALLOW THEM. HAVE NOT HEARD ANY SI/HI OR AVH STATEMENTS FROM HER TODAY.
--- NOTE | 2019-06-23 15:37 | NUR ---
SW sent updates to RW and set up d/c pick for 10 am on Thursday.
[2019-06-23 17:50] LABS: URINE BILIRUBIN NEGATIVE (Negative); URINE BLOOD TRACE (Negative); URINE CLARITY CLEAR; URINE COLOR YELLOW; URINE GLUCOSE-RANDOM* NEGATIVE (Negative); URINE KETONES NEGATIVE (Negative); URINE LEUKOCYTES TRACE (Negative); URINE NITRITE NEGATIVE (Negative); URINE PROTEIN (DIPSTICK) TRACE (Negative); URINE UROBILINOGEN 0.2 E.U./dl (0.2-1.0)
[2019-06-23 19:40] VITALS: BP 150/58
--- NOTE | 2019-06-24 01:17 | NUR ---
Care assumed of patient at 1915: Patient restless, exit seeking, pacing halls at start of shift. Patient alert and oriented to person only. Confused and forgetful. Easily irritable. Patient denies pain or discomfort. Denies SI/HI/AH/VH. No physical or verbal aggression shown. Patient needing frequent re-direction out of peer rooms and away from exit doors. Patient strongly believes that her room is in a male peers room and becomes agitated when re-directed. Patient having difficulty staying seated for nursing assessment. Walking assessment completed. Patient originally declined HS medication. Nurse continued to talk while handing her the cup of pills at which time she put them in her mouth and took them. Required distraction to take them. Patient continent of bladder. Compliant with using the bathroom with supervision. Patient required to be assisted back to bed several times this shift. Patient had difficulty falling asleep this shift. Patient remains on PO abx tx due to infection to skin tear to right lower extremity. No obvious paranoia or delusional behaviors observed. Patient did declined HS snack. Patient tolerated dressing change to right lower extremity without issue. Patient is resting in bed at this time.
[2019-06-24 07:43] VITALS: BP 102/40
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
--- NOTE | 2019-06-24 08:11 | NUR ---
PT UP WALKING AROUND THIS AM, SITTING DOWN FOR BREAKFAST. PT TOOK MEDS OK IN YOGART. PT DENIES ANY PAIN. PT PLEASANT WITH STAFF. PT HAS DRY COUGH. LOOSE BM LAST NIGHT. HELD SENNA FOR LOOSE STOOLS.
[2019-06-24 09:30] VITALS: BP 102/46
--- NOTE | 2019-06-24 15:14 | NUR ---
0883 - 1983 Group was lead by Arlyn in dietary. Joleen did not attend group.
--- NOTE | 2019-06-24 15:30 | NUR ---
PT ATTENED [id number] GROUP. PT LISTENING TO SPEAKER SITTING QUIETLY.
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
--- NOTE | 2019-06-24 16:51 | NUR ---
PT REFUSING TO BE REDIRECTED, PT PACING FROM DOOR TO WINDOW HOLDING TOWELS. PT TRYING TO GET OUT OF DOOR. PT REFUSING SEROQUEL CRUSHED IN PUDDING. WILL TRY WHEN TRAYS ARRIVE FOR DINNER.
--- NOTE | 2019-06-24 17:07 | NUR ---
PT NOT SITTING DOWN TO EAT SUPPER. PACING AND GOING INTO OTHER ROOMS. ORDERED JENNIFER X1.
--- NOTE | 2019-06-24 17:30 | NUR ---
PT STILL NOT SITTING DOWN TO EAT DINNER. PT HAS LAUNDRY TO FLOOR INFRONT OF WEST DOOR. PT REFUSING TO GO TO ROOM FOR SHOT. ADM IN DOORWAY TO SECLUSION ROOM ACCOMPANIED BY 2 OTHER NURSES. PT STATED THANK YOU AFTER INJECTION.
--- NOTE | 2019-06-24 18:10 | NUR ---
PT SITTING AT THIS TIME IN DINING ROOM. PT SEEMS CALMER, ABLE TO TALK TO STAFF. PT ALSO WAS ABLE TO TALK WITH BULLDOZER/LOADER/COMPACTOR/SCRAPER.
--- NOTE | 2019-06-24 18:31 | NUR ---
PT UP WALKING AROUND UNIT. PT DIDN'T EAT DINNER THIS ROSELINE.
[2019-06-24 19:59] VITALS: BP 125/43
--- NOTE | 2019-06-24 21:53 | NUR ---
PT HAD DIFFICULTY REMEMBERING FIRST NAME. NO DIFFICULTY REMEMBERING LAST NAME. CONFUSED. FORGETFUL. PT WAS PLEASANT,CALM AND COOPERATIVE DURING ASSESSMENT. NO ANXIETY, RESTLESSNESS OR IRRITABILITY NOTED. PT SITTING WITH ROOMMATE IN THE DAYROOM. PT HAD 100% HS SNACKS. PT AMBULATES INDEPENDENTLY. PT TOOK PILLS WHOLE WITHOUT HESITATION. SKIN TEAR TO RLE. DRESSING CHANGED. WILL CONTINUE TO MONITOR.
[2019-06-25 07:58] VITALS: BP 120/39
[2019-06-25 10:33] VITALS: BP 120/39
--- NOTE | 2019-06-25 10:38 | NUR ---
ASSUMED CARE AT 0700 THIS MORNING. PT. UP AND WALKING AROUND. NO PROBLEMS NOTED AT THIS TIME. PT. TOOK MEDICATIONS WITH NURSING ASSISTANCE WITHOUT PROBLEMS NOTED. AFTER BREAKFAST, SHE WAS UP WALKING IN THE HALLWAY. SHE WAS COMPLAINING OF "PAIN IN MY FEET". SHE WAS ASKED TO SIT DOWN OR LAY DOWN. SHE REFUSED BOTH. SHE CONTINUED TO PACE UP AND DOWN THE HALLWAY. AT ONE POINT SHE WAS IRRITABLE AND TOLD THIS NURSE TO "SHUT UP".
[2019-06-25 20:10] VITALS: BP 102/59
--- NOTE | 2019-06-26 06:18 | NUR ---
Pt confused. Frogetful. disoriented x4. Pt was pleasant, cooperative during assessment. Denies anxiety, depression. Pt took meds whole with no hesitation. No exit seeking noted this shift. Pt retired to bed early. Pt declined bedtime snacks. Frequent roundings done. Pt slept well this shift. will continue to monitor.
[2019-06-26 08:53] VITALS: BP 110/34
[2019-06-26 10:58] VITALS: BP 110/34
--- NOTE | 2019-06-26 11:07 | NUR ---
ASSUMED CARE AT 0700 TODAY. PT. UP, DRESSED AND WANDERING AROUND. SHE DID SIT FOR BREAKFAST, BUT ATE VERY LITTLE BEFORE SHE UP TO WANDER AGAIN. MANY TIME HER AFFECT IS FLAT, MOOD SOBER. SHE IS VERY CONFUSED. SHE IS NOT ABLE TO COMMUNICATE EFFECTIVELY WITH STAFF. MANY TIMES SHE TALKS IN WORD SALAD AND CAN MAKE A WHOLE SENTENCE OR TWO AT OTHER TIMES. MEDICATIONS ARE CRUSHED AND PUT IN PUDDING. SHE CONTINOUSLY AMBULATES IN THE KHAN, C/O OF BEING "SO VERY TIRED AND MY LEGS HURT" BUT CANNOT SIT FOR MORE THAN JUST A SHORT PERIOD OF TIME.
[2019-06-26 20:05] VITALS: BP 146/70
--- NOTE | 2019-06-27 00:48 | NUR ---
Pt alert. Oriented to self this shift. Otherwise confused and forgetful. Pt was in the dayroom during assessment. Pt was pleasant and cooperative. No aggressiveness noted. Pt did pace around a little beginning of shift, but retired back to the dayroom. Pt had HS snacks. Pt took pills whole, a little at a time to avoid chewing them. Dressing to RLE changed, C/D/I. Pt retired to room and is currently sleeping. Will continue to monitor.
--- NOTE | 2019-06-27 07:44 | HC ---
[facility] [address] [place] [address] CONSULTATION Name: KAREN CARTER Room #: 528B-B ADM IN M.R.#: [id number] Admission: 06/07/19 Attend Phys: Rocky Li DO Discharge: Date of : 05/03/[birth year] Report #: [id number] THIS REPORT FOR: cc: CECILE - No family physician/PCP CECILE - No family physician/PCP Shaun Santo MD ~ CC: Rocky Li [facility] physician/PCP Corine Scherer DATE OF SERVICE: 06/20/2019 CHIEF COMPLAINT: Traumatic wound to the left lower extremity. HISTORY OF PRESENT ILLNESS: This is an 89-year-old female patient with a history of dementia, was admitted to the [facility] for worsening behavior. She has apparently injured her left leg. Details are unclear. She has a large ulceration or wound present and I have been asked to see her with regard to ongoing wound care. The patient cannot answer many questions about herself. PAST MEDICAL HISTORY: Positive for hypertension, hyperlipidemia, dementia with behavior issues. SOCIAL HISTORY: Negative for alcohol or tobacco use. FAMILY HISTORY: Unknown. MEDICATIONS: Include donepezil, chlorthalidone, carvedilol, lisinopril, memantine, paroxetine, rosuvastatin. ALLERGIES: None. REVIEW OF SYSTEMS: Really not obtainable other than that mentioned in history of present illness as the patient is not cooperative with answering questions at this time. PHYSICAL EXAMINATION: VITAL SIGNS: At this time include, temperature 37, pulse 74, respiratory rate of 16, blood pressure 123/42. GENERAL: This is a chronically ill-appearing female patient who appears to be in minimal distress. She was noted to be wandering around the psychiatric unit asking to be released. HEENT: Head normocephalic. Nose and throat are clear. NECK: Supple. LUNGS: Clear. ABDOMEN: Soft. [facility] [address] [place] [address] CONSULTATION Name: KAREN CARTER Room #: 528B-B ADM IN M.R.#: [id number] Admission: 06/07/19 Attend Phys: Rocky Li DO Discharge: Date of : 05/03/[birth year] Report #: [id number] EXTREMITIES: Lower extremities demonstrate that she has a wound to the right pretibial region. It is moist with yellow drainage and some surrounding erythema. Distally, I can palpate pulses. NEUROLOGIC: The patient moves all 4 extremities spontaneously. LABORATORY STUDIES: Sodium 148, potassium 3.7, chloride 108, CO2 of 34, BUN 65, creatinine 1.2, glucose 91. White blood cell count 5.4 with a hemoglobin 9.7. CLINICAL IMPRESSION: 1. Traumatic wound to the right pretibial region. 2. Wound infection and early cellulitis, right lower extremity. 3. Dementia with behavior. 4. Hypertension. 5. Hyperlipidemia. RECOMMENDATIONS: We will recommend quarter strength Dakin's moist gauze to be applied b.i.d. followed by Kerlix and Claude wrap. We will obtain a culture. Antibiotics will be pending culture results. Recommend ongoing nutritional support. I appreciate being asked to see her in consultation. <ELECTRONICALLY SIGNED> By: Shaun Santo MD 06/27/19 [id number] [id number] Shaun Santo MD /nt
[2019-06-27 08:02] VITALS: BP 111/44
--- NOTE | 2019-06-27 08:02 | NUR ---
DIETER made packet and left it on the chart. Sw faxed D/C orders and summary to [facility]. DIETER left FAX cinfrmation with fax packet on the chart.
[2019-06-27 08:30] VITALS: BP 144/64
[2019-06-27] MEDS ORDERED: DOXYCYCLINE HYC50 MG PO (09:32)
[2019-06-27] MEDS ORDERED: LIPITOR 20 MG T20 M1 PO (09:34)
[2019-06-27] MEDS ORDERED: COREG6.25 MG PO (09:35)
[2019-06-27] MEDS ORDERED: LISINOPRIL10 MG PO (09:36)
[2019-06-27] MEDS ORDERED: HALOPERIDOL 1 MG1 MG PO (09:36)
[2019-06-27] MEDS ORDERED: NAMENDA 5 MG TAB5 M1 PO (09:37)
[2019-06-27] MEDS ORDERED: MAGOX 400400 MG PO (09:40)
[2019-06-27] MEDS ORDERED: DAKIN'S473 M2 IRRIG (09:40)
[2019-06-27] MEDS ORDERED: SENNA-TIME S T1 EACH PO (09:40)
--- NOTE | 2019-06-27 10:58 | NUR ---
AM MEDICATIONS GIVEN AND BREAKFAST PROVIDED TO PT THIS AM. DENIES C/O PAIN/DISCOMFPORT. CALM AND COOPERATIVE. REPORT CALLED TO [facility] NURSE AT THE [place] AND DC PACKET PREPARED INCLUDING DC SUMMARY,DC ORDERS AND RX. SON MELISSA CARTER CONTACTED VIA PHONE AND DC INSTRUCTIONS REVIEWED-HE DENIES QUESTIONS/CONCERNS. PT DC'D ALONG WITH PERSONAL BELONGINGS VIA WC TO THE [place] AT TIME OF DC
--- NOTE | 2019-06-27 22:28 | D ---
[facility] [address] [place] [address] DISCHARGE SUMMARY Name: KAREN CARTER Room #: 528B-B DIS IN M.R.#: [id number] Admission: 06/07/19 Attend Phys: Rocky Li DO Discharge: 06/27/19 Date of : [birth year]/03/[birth year] Report #: [id number] THIS REPORT FOR: cc: CECILE - No family physician/PCP FAM - No family physician/PCP Rocky Li DO ~ THIS REPORT FOR: //name// CC: Rocky HUBER physician/PCP Corine Scherer DATE OF SERVICE: 06/27/2019 INPATIENT PSYCHIATRIC DISCHARGE SUMMARY ATTENDING PSYCHIATRIST: Rocky li DO. 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 Medical comorbidities include wound infection on her right tibia, which cultured positive for Staph aureus and Staph Mitis/Oralis. 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 The patient is symptomatic, hyperlipidemia on a statin. DISCHARGE PLAN: Discharging to the [facility] for long-term care and memory care. Psychiatric and medical treatment to be performed by the receiving facility. DISCHARGE DIET: Regular. Supplements as needed. Her BMI is 18.6 kg, which is less than what would be desired. DISCHARGE MEDICATIONS: Doxycycline 100 mg p.o. b.i.d. for 7 more days for wound infection, atorvastatin 20 mg p.o. daily for hyperlipidemia, Coreg 6.25 mg p.o. b.i.d., we will hold if systolic blood pressure is less than 100 for hypertension, lisinopril 10 mg p.o. daily for hypertension, Haldol 2 mg p.o. at 0900 and 2100 for impulse control and sundowning, memantine 10 mg p.o. b.i.d., Dakin's 10 mL b.i.d. for 14 days to wound, magnesium oxide 400 mg p.o. b.i.d. for supplementation, Senna docusate 2 tablets p.o. b.i.d. for bowel motility, stopped this admission were donepezil, chlorthalidone, paroxetine. [facility] [address] [place] [address] DISCHARGE SUMMARY Name: EMMAKAREN Room #: 528B-B DIS IN M.R.#: [id number] Admission: 06/07/19 Attend Phys: Rocky Li DO Discharge: 06/27/19 Date of : [birth year]/03[birth year] Report #: [id number] LABORATORY DATA: Significant laboratories this admission on the CBC last done on June 22, H and H 8.7 and 27.3, white count 4.6, platelet count 135. Chemistries last done on June 22 showed iron 20, TIBC 249%, sats of 8. Sodium 146, potassium 3.9, chloride 105, bicarbonate 32, BUN 44, creatinine 0.9, estimated GFR 59, calcium 8.1, magnesium 1.6. Ferritin 109. Vitamin B12 466, folate 16.5. Urinalysis was trace protein, trace blood, trace leukocyte esterase. Depakote level on June 14 was 89. At discharge, the patient was not discharged on any Depakote this was stopped due to oversedation, gait impairment due to Depakote. REASON FOR ADMISSION: Back on June 07 or so, the patient was sent from [facility]. The patient was recently moved there. She attempted to escape reportedly 5 times over today. HOSPITAL COURSE: The patient was admitted to Geriatric Psychiatry Unit. Initially, we did move towards a heavier regimen to cut down on elopement of impulsivity with the moments be in the Depakote. Unfortunately, we have some hearing impairment and failure to thrive issues with that, so we backed off completely and ended up with some owning and was difficult to get the patient to take a dose of medication at 3:00 p.m., so while and off with giving 2 mg of Haldol in the morning and 2 mg in the evening with the exception of the couple of hours a day p.m. for sundowning, the patient's overall behavior improved quite a bit at the time of discharge, she was not suicidal or homicidal, felt to be ready for discharge. PHYSICAL EXAMINATION: VITAL SIGNS: Temperature 36.8, pulse 75, respirations 16, blood pressure 111/44, O2 sat 93%. MUSCULOSKELETAL: Normal gait and kyphotic. MENTAL STATUS EXAMINATION: This is a well-developed female wearing glasses, appearing stated age. Attention limited. Concentration limited. Speech is normal rate. Thought process linear and goal directed. Thought content focused on the present, some sudden retardation. No psychomotor agitation. Denied SI or HI. Denied hopelessness, helplessness. Memory noted to be impaired. Insight limited. Judgment limited. Fund of knowledge average range. PROGNOSIS: For this patient is guarded to poor given advanced age, multiple health issues and her frailty. <ELECTRONICALLY SIGNED> By: Rocky Li, DO 06/27/192227 29 00 Rocky Li, DO /nt
== END 2019-06-27 10:00 | DRG 57 ==
LOC: SBH 19:57
PROVIDERS: Internal Medicine; Psychiatry & Neurology Psychiatry; ADMIT Psychiatry & Neurology Psychiatry
PROC: 0HBRXZZ Excision of Toe Nail, External Approach (ICD-10-PCS; principal; 2019-06-24)
DX: G30.9 Alzheimer's disease, unspecified (principal); F02.81 Dementia in other diseases classified elsewhere, unspecified severity, with behavioral disturbance; L97.919 Non-pressure chronic ulcer of unspecified part of right lower leg with unspecified severity; F32.9 Major depressive disorder, single episode, unspecified; B35.1 Tinea unguium; L60.2 Onychogryphosis; I10 Essential (primary) hypertension; E78.5 Hyperlipidemia, unspecified; I35.0 Nonrheumatic aortic (valve) stenosis; Z79.899 Other long term (current) drug therapy; Z81.8 Family history of other mental and behavioral disorders
CPT/HCPCS: 10880